=== PATIENT | female | born 1985 | race Caucasian/White ===

== ENCOUNTER 2017-04-11 03:36 | Inpatient (IN) ==
[2017-04-11] MEDS ORDERED: NALBUPHINE 10 MG/ML INJECTION IVP PRN ×2 (05:07→10:26)
[2017-04-11] MEDS ORDERED: LR 1,000 ML IV SCH (05:08)
[2017-04-11] MEDS: ONDANSETRON 4 MG/2 ML INJECTION IVP PRN ×2 (05:24→14:33)
--- NOTE | 2017-04-11 07:53 | Anesthesia Preoperative Report ---
Anesthesia Epidural/Spinal Rec - Date and Time Date: 04/11/17 Preoperative Diagnosis: Previous Procedure: Plan: Spinal - Vital Signs Vital Signs: Temp Pulse Resp BP 97.5 F 78 16 131/91 H 04/11/17 05:32 04/11/17 05:32 04/11/17 05:32 04/11/17 05:32 NPO since: Midnight /Para: P:1 - Medictaions & Allergies Inpatient Medications: Current Medications Lactated Ringer's (Lactated Ringers) 1,000 mls @ 1,000 mls/hr IV .Q1H SHANNAN Stop: 04/11/17 06:07 Last Admin: 04/11/17 05:23 Dose: 1,000 mls/hr Nalbuphine HCl (Nubain) 10 mg IVP ONE TIME PRN Last Admin: 04/11/17 06:40 Dose: 10 mg Ondansetron HCl (Zofran) 4 mg IVP Q6H PRN PRN Reason: Nausea &/or vomiting Last Admin: 04/11/17 05:24 Dose: 4 mg Allergies/Adverse Reactions: Allergies Allergy/AdvReac Type Severity Reaction Status Date / Time No Known Drug Allergies Allergy Unknown Verified 09/05/12 02:14 - Home Medications Home Medications: Home Medications Medication Instructions Recorded Confirmed Type Acetaminophen 1,000 mg PO PRN PRN #0 08/27/12 04/11/17 History Vits W-Ca,Fe,Fa(<1MG) 1 tab PO DAILY #0 08/27/12 04/11/17 History ( Vitamins) diphenhydrAMINE HCl [Benadryl] 25 mg PO PRN #0 08/27/12 04/11/17 History - Surgical History Hx Family Anesthesia Reaction: No History of Motion Sickness: No - Social History Second Hand Exposure: No Time spent discussing smoking cessation with patient: 3 to 10 minutes Substance Use Type: does not use Alcohol Intake Frequency: does not drink Hx Chewing Tobacco Use: No - Pertinent Findings Lab Data: CBC and BMP 04/11/17 05:16 04/11/17 05:16 BMP 04/11/17 05:16 Creatinine 0.6 L Liver Function 04/11/17 Range/Units 05:16 AST 30 (14-36) U/L EKG Rhythm: Normal Sinus Rhythm - Physical Exam Respiratory Exam: lungs clear Cardiovascular Exam: regular rate and rhythm - Airway Assessment Mallampati Score: II TMD: 3 Fingerbreadths Neck Extension: good Overall Assessment: may be difficult intubation - ASA ASA Score: 2 - Discussion Discussion: Discussed risks/options/alternatives of anesthesia and questions answered. Patient consents. Nursing pain assessment noted. Anesthesia Discussion: spouse Attestation Statement: Prior to the delivery of any anesthetic medication, I examined the patient, developed the plan, obtained the patient's consent and discussed the risk and benefits of the procedure with the patient/guardian.
[2017-04-11] MEDS ORDERED: FAMOTIDINE PREMIX 20 MG/50 ML BAG IV ONE (07:59)
[2017-04-11] MEDS ORDERED: CITRIC ACID/SODIUM CITRATE 30ml PO ONE (07:59)
[2017-04-11] MEDS ORDERED: CEFAZOLIN PREMIX (MC ONLY) 2 GM/50 ML BAG IV ONE (07:59)
[2017-04-11] MEDS ORDERED: NOZIN NASAL SWAB NAS ONE (07:59)
[2017-04-11] MEDS ORDERED: PHENYLEPHRINE INJ 10 MG/ML VIAL ONE ×2 (08:19)
[2017-04-11] MEDS ORDERED: MORPHINE SULFATE PF 5mg/10ml INJ (Duramorph) ONE (08:19)
[2017-04-11] MEDS ORDERED: SALINE FLUSH 10ml SYRINGE ONE ×2 (08:19)
[2017-04-11] MEDS ORDERED: FentaNYL 100 MCG/2 ML INJECTION ONE (08:19)
[2017-04-11] MEDS ORDERED: GLYCOPYRROLATE 0.4 MG/2 ML INJECTION ONE (08:19)
[2017-04-11] MEDS ORDERED: OXYTOCIN DRIP 30 UNIT/500 ML ML IV SCH (09:34)
[2017-04-11] MEDS ORDERED: ACETAMINOPHEN 500 MG TABLET PO PRN (09:34)
[2017-04-11] MEDS ORDERED: DiphenhydrAMINE 25 MG CAPSULE PO PRN (09:34)
[2017-04-11] MEDS ORDERED: SALINE FLUSH 10ml SYRINGE IVF PRN (09:34)
[2017-04-11] MEDS ORDERED: HYDROCORTISONE 2.5% CREAM 30gm RECTALLY PRN (09:34)
[2017-04-11] MEDS ORDERED: SIMETHICONE 80 MG CHEWABLE TABLET PO PRN (09:34)
[2017-04-11] MEDS: IBUPROFEN 800 MG TABLET PO PRN ×2 (10:23→18:27)
[2017-04-11] MEDS: NOZIN NASAL SWAB NAS SCH ×2 (10:24→17:05)
[2017-04-11] MEDS ORDERED: NALOXONE 2 MG/2 ML INJECTION PFS IVP PRN (10:26)
[2017-04-11] MEDS ORDERED: METOCLOPRAMIDE 10mg/2ml INJECTION IVP PRN (10:26)
[2017-04-11] MEDS ORDERED: ONDANSETRON 4 MG/2 ML INJECTION IVP PRN (10:26)
[2017-04-11] MEDS ORDERED: DiphenhydrAMINE 50 MG/ML INJECTION IVP PRN (10:26)
[2017-04-11] MEDS: D5LR 1,000 ML IV SCH (10:26)
[2017-04-11] MEDS: LR 1,000 ML IV SCH ×2 (10:27→15:50)
[2017-04-11] MEDS: SIMETHICONE 80 MG CHEWABLE TABLET PO SCH ×3 (10:36→21:10)
[2017-04-11] MEDS: HYDROCODONE/APAP 5mg/325mg TABLET PO PRN ×2 (11:18→21:10)
--- NOTE | 2017-04-11 17:09 | Anesthesia Preoperative Report ---
Anesthesia Epidural/Spinal Rec - Date and Time Date: 04/11/17 Preoperative Diagnosis: Previous Procedure: Plan: Spinal - Vital Signs /Para: G: P: - Medictaions & Allergies Inpatient Medications: Current Medications Diphenhydramine HCl (Benadryl) 25 - 50 mg IVP Q3H PRN PRN Reason: Itching Stop: 04/12/17 10:25 Metoclopramide HCl (Reglan) 10 mg IVP Q6H PRN PRN Reason: Nausea &/or vomiting Stop: 04/12/17 10:25 Nalbuphine HCl (Nubain) 5 - 10 mg IVP Q4H PRN PRN Reason: Pain,Severe Itching,or Nausea Stop: 04/12/17 10:25 Naloxone HCl (Narcan) 0.1 mg IVP Q2M PRN Stop: 04/12/17 10:25 Ondansetron HCl (Zofran) 4 mg IVP Q4H PRN PRN Reason: Nausea &/or vomiting Stop: 04/12/17 10:25 Allergies/Adverse Reactions: Allergies Allergy/AdvReac Type Severity Reaction Status Date / Time No Known Drug Allergies Allergy Unknown Verified 09/05/12 02:14 - Home Medications Home Medications: Home Medications Medication Instructions Recorded Confirmed Type Acetaminophen 1,000 mg PO PRN PRN #0 08/27/12 04/11/17 History Vits W-Ca,Fe,Fa(<1MG) 1 tab PO DAILY #0 08/27/12 04/11/17 History ( Vitamins) diphenhydrAMINE HCl [Benadryl] 25 mg PO PRN #0 08/27/12 04/11/17 History - Surgical History Hx Family Anesthesia Reaction: No History of Motion Sickness: No - Social History Smoking Status: Never smoker Second Hand Exposure: No Time spent discussing smoking cessation with patient: 3 to 10 minutes Substance Use Type: does not use Alcohol Intake Frequency: does not drink Hx Chewing Tobacco Use: No - Pertinent Findings EKG Rhythm: Normal Sinus Rhythm - Physical Exam Respiratory Exam: lungs clear Cardiovascular Exam: regular rate and rhythm - Airway Assessment Mallampati Score: II TMD: 3 Fingerbreadths Neck Extension: good Overall Assessment: may be difficult intubation - ASA ASA Score: 2, E - Discussion Discussion: Discussed risks/options/alternatives of anesthesia and questions answered. Patient consents. Nursing pain assessment noted. Anesthesia Discussion: spouse Attestation Statement: Prior to the delivery of any anesthetic medication, I examined the patient, developed the plan, obtained the patient's consent and discussed the risk and benefits of the procedure with the patient/guardian.
--- NOTE | 2017-04-11 17:10 | Anesthesia Postoperative Note ---
- Date and Time Date: 04/11/17 Time: 17:09 - Status Patient Participated in Evaluation: Patient Participated in Person Respiratory Function: Airway Patent Cardiovascular Function: Regular Pulse EKG Rhythm: Normal Sinus Rhythm Mental Status: Alert and Oriented Pain Intensity: 3 Hydration: Taking PO Fluids Complications During Recover: None Apparent - Follow-Up Instructions Instructions: Per Surgeon
--- NOTE | 2017-04-11 17:11 | OB/GYN Progress Note ---
OB - PN: A/P - Time Spent With Patient Total time spent is greater than 50% in coordination of care (as documented) at patient's floor/unit and/or counseling patient: less than 15 minutes OB - PN: Subj Patient comments: pain well controlled (doing well) OB - PN: Obj Exam Vital signs: Temp Pulse Resp BP 97.7 F 78 16 131/91 H 04/11/17 14:00 04/11/17 05:32 04/11/17 05:32 04/11/17 05:32 OB - PN: Obj Data - Labs CBC & Chem 7: 04/11/17 13:58 04/11/17 05:16 Labs: Laboratory Results - last 24 hr 04/11/17 04/11/17 04/11/17 05:16 05:16 05:16 WBC 14.0 H RBC 3.94 L Hgb 11.8 L Hct 34.9 L MCV 88.6 MCH 29.9 MCHC 33.8 RDW Std Deviation 39.4 Plt Count 263 MPV 9.3 L Immature Gran % (Auto) 0.4 Neut % (Auto) 76.3 H Lymph % (Auto) 15.6 L [place] % (Auto) 6.6 Eos % (Auto) 1.0 Baso % (Auto) 0.1 Neut # 10.7 H Lymph # 2.2 [place] # 0.9 H Eos # 0.1 Baso # 0.0 Abs Immat Gran (auto) 0.06 H Creatinine 0.6 L GFR Calculation 117 AST 30 Blood Type A Positive Antibody Screen Negative 04/11/17 13:58 WBC 15.7 H RBC 3.83 L Hgb 11.6 L Hct 34.0 L MCV 88.8 MCH 30.3 MCHC 34.1 RDW Std Deviation 39.9 Plt Count 249 MPV 9.3 L Immature Gran % (Auto) Neut % (Auto) Lymph % (Auto) [place] % (Auto) Eos % (Auto) Baso % (Auto) Neut # Lymph # [place] # Eos # Baso # Abs Immat Gran (auto) Creatinine GFR Calculation AST Blood Type Antibody Screen
--- NOTE | 2017-04-11 18:28 | Operative Note ---
DATE OF PROCEDURE 04/11/2017 PREOPERATIVE DIAGNOSES 1. A 32-year-old 4, para 1, at 38 weeks 2 days gestational age. 2. Previous . 3. Labor. POSTOPERATIVE DIAGNOSES 1. A 32-year-old 4, para 1, at 38 weeks 2 days gestational age. 2. Previous . 3. Labor. PROCEDURE Repeat low transverse section. SURGEON Dr. Jessa Harley MANUFACTURING EXECUTIVE Dr. Laine Ayala. ANESTHESIA Spinal by JOAN Perry. COMPLICATIONS None. EBL 700 mL FINDINGS Viable female , cephalic position, clear fluids. Apgars 8, 9. Tony 3728 grams. Overall normal-appearing uterus with a mild arcuate shape of the fundus. Normal-appearing adnexa. ANNA Mariano presented to [facility] with complaints of contractions. She changed her cervix from 1.5 to 2.5 cm, so she was admitted and consented for repeat C- section. DESCRIPTION OF PROCEDURE The patient was taken to the operating room where anesthesia was obtained. She was placed in the dorsal supine position with a leftward tilt and a Murphy catheter was placed. She was prepared and draped in a normal sterile fashion. A Pfannenstiel skin incision was made through her previous incision and carried down to the fascia. The fascia was incised in the midline and extended laterally with the Morris scissors. The fascia was elevated, and the underlying rectus muscles were dissected off. The peritoneum was entered with a combination of sharp and blunt dissection. This was extended superiorly and inferiorly with good visualization of the bladder. The bladder blade was inserted. A bladder flap was created and the bladder blade was reinserted. The lower uterine segment was incised in a transverse fashion layer by layer with the scalpel and bluntly extended. The infant's head was delivered atraumatically. The nose and mouth were suctioned. There was a nuchal cord x2 that was reduced. The cord was clamped and cut. The infant was handed to Dr. Ferguson who was asked to attend due to the unscheduled delivery. The placenta delivered spontaneously. The uterus was exteriorized and cleared of all clots and debris. The uterine incision was closed with running locked 0 Monocryl. The lower uterine segment was very thin, so the incision was imbricated with a second layer. Good hemostasis was noted. The uterus was returned to the abdomen. The gutters were cleared of all clots and debris. The uterine incision was inspected one final time and still noted to be hemostatic. The peritoneum was closed with running 2-0 Vicryl. Hemostasis was obtained in the rectus muscles with cautery. The fascia was closed with running 0 Vicryl. Hemostasis was obtained in the subcutaneous tissue with the cautery. The skin was closed with 4-0 Vicryl in a subcuticular manner. Steri-Strips were placed. Sponge, sharp, and instrument counts were correct. The patient tolerated the procedure well and was taken to the recovery room in good condition. DEENA
[2017-04-12] MEDS: HYDROCODONE/APAP 5mg/325mg TABLET PO PRN ×5 (01:18→19:44)
[2017-04-12] MEDS: SIMETHICONE 80 MG CHEWABLE TABLET PO SCH ×6 (01:18→22:19)
[2017-04-12] MEDS: D5LR 1,000 ML IV SCH (03:23)
[2017-04-12] MEDS: LR 1,000 ML IV SCH (03:23)
[2017-04-12] MEDS: NOZIN NASAL SWAB NAS SCH ×4 (03:23→22:19)
[2017-04-12] MEDS: IBUPROFEN 800 MG TABLET PO PRN ×3 (05:36→22:19)
--- NOTE | 2017-04-12 08:14 | OB/GYN Progress Note ---
<Emi Calvert - Last Filed: 04/12/17 08:12> OB-PP Progress Note - General POD:: POD1 - Subjective Date: 04/12/17 Lochia: Minimal Pain: contolled Voiding: voiding Nausea or Vomiting Present: No - Objective Vital Signs: Last Vital Signs Temp 98.0 F 04/12/17 04:55 Pulse 62 04/12/17 04:55 Resp 16 04/12/17 04:55 BP 126/70 04/12/17 04:55 Pulse Ox 98 04/12/17 04:55 Urine Output: good General: alert and oriented Abdomen: non-tender Incision: normal (drsg removed), intact Extremities: non-tender Edema: none Laboratory: 04/11/17 13:58 04/11/17 05:16 - Assessment Assessment: Repeat C/S - Plan Plan: routine care (no complaints.) <Jessa Harley - Last Filed: 04/12/17 08:45> OB-PP Progress Note - General Group B Streptococcal Result: Negative Blood Type: A (+) positive Rubella OB HPI: immune - Subjective Date: 04/12/17 - Objective Vital Signs: Last Vital Signs Temp 98.0 F 04/12/17 04:55 Pulse 62 04/12/17 04:55 Resp 16 04/12/17 04:55 BP 126/70 04/12/17 04:55 Pulse Ox 98 04/12/17 04:55 Laboratory: 04/11/17 13:58 04/11/17 05:16 - Plan Patient seen, and I agree with Emi's note.
[2017-04-12] MEDS ORDERED: DOCUSATE CALCIUM 240 MG CAPSULE PO SCH (09:00)
[2017-04-13] MEDS: HYDROCODONE/APAP 5mg/325mg TABLET PO PRN ×2 (00:38→06:20)
[2017-04-13] MEDS: IBUPROFEN 800 MG TABLET PO PRN (06:20)
--- NOTE | 2017-04-13 08:20 | OB/GYN Progress Note ---
OB-PP Progress Note - General PPD2 General: Doing well. Desires dismissal. - Subjective Date: 04/13/17 Lochia: Minimal Pain: contolled Voiding: voiding - Objective Vital Signs: Last Vital Signs Temp 98.1 F 04/13/17 00:35 Pulse 79 04/13/17 00:35 Resp 16 04/13/17 00:35 BP 137/86 04/13/17 00:35 Pulse Ox 97 04/13/17 00:35 Urine Output: good General: alert and oriented Abdomen: non-tender Abdomen: FF Incision: normal, intact Extremities: non-tender Laboratory: 04/11/17 13:58 04/11/17 05:16 - Assessment (1) Status post repeat low transverse section Status: Acute - Plan Plan: routine care, discharge home, continue PNV
--- NOTE | 2017-04-13 08:27 | Discharge Summary ---
Discharge Plan - Med Rec/Dispo Prescriptions: New Hydrocodone/APAP 5/325 [Shannon 5/325] 1 - 2 tab PO Q4H PRN #40 tab PRN Reason: Pain Ibuprofen [Motrin] 800 mg PO Q8H PRN #30 tab PRN Reason: Pain Continue diphenhydrAMINE HCl [Benadryl] 25 mg PO PRN #0 Vits W-Ca,Fe,Fa(<1MG) ( Vitamins) 1 tab PO DAILY #0 Acetaminophen 1,000 mg PO PRN PRN #0 PRN Reason: Pain - Disposition 01 Discharged Home, Self-Care
== END 2017-04-13 11:00 | disposition home or self-care (01) | DRG 766 ==
LOC: OBOBS 03:36 → MC 03:37
PROVIDERS: ADMIT Obstetrics & Gynecology; ATTEND Obstetrics & Gynecology